=== PATIENT | female | born 1965 | race Hispanic/Latino ===

== ENCOUNTER 2019-09-17 08:19 | Observation (INO) | payer BC, OTHER ==
[2019-09-15 16:42] VITALS: BP 135/75
[2019-09-15 16:48] LABS: BASOPHILS % (AUTO) 0.7 % (0.0-5.0); HEMATOCRIT 40.7 % (36-48); LYMPHOCYTES % (AUTO) 44.2 % (21.0-51.0); MEAN CORPUSCULAR HEMOGLOBIN 26.4 pg (27.0-33.0); MEAN CORPUSCULAR HGB CONC 31.7 g/dL (32.0-36.0); MEAN CORPUSCULAR VOLUME 83.4 fL (79-99); MONOCYTES % (AUTO) 4.8 % (3.0-13.0); NEUTROPHILS % (AUTO) 47.9 % (40.0-77.0); PLATELET COUNT (AUTO) 388 K/uL (130-400); RED BLOOD CELL COUNT(AUTO) 4.88 MIL/uL (4.00-5.50); RED CELL DISTRIBUTION WIDTH 13.4 % (11.0-15.5); WHITE BLOOD COUNT (AUTO) 8.1 K/uL (4.8-10.8)
[2019-09-15 16:54] LABS: CREATININE 0.7 mg/dL (0.5-1.5); POTASSIUM 3.8 mmol/L (3.5-5.1)
[2019-09-15 16:58] LABS: INR 1.06 (0.85-1.15); PARTIAL THROMBOPLASTIN TIME 28.2 SEC (26.3-35.5); PROTHROMBIN TIME 11.1 SEC (9.6-11.6)
--- NOTE | 2019-09-15 17:03 | NUR ---
PER [place]ST[place] FOR DR GOINS NO NEED TO HOLD JANUMET FOR ABLATION
--- NOTE | 2019-09-15 18:16 | NUR ---
REPORT GIVEN FROM [facility], STATES PT HCG SERUM IS POSSIBLE POSITIVE SHOWS LIGHT POSITIVE, STATES SHE WILL RECHECK SERUM QUANTITATE. NOTIFIED ISAIAS Silva PEDIATRIC HOSPITALIST, WILL RECHECK IN AM 09-16-2019 AND INFORM PT/ DR. GOINS IF LAB IS POSITIVE.
[~2019-09-17] VITALS: Ht 156.2 cm; Wt 64.9 kg
[2019-09-17] VITALS (10 sets, daily range): BP systolic 100–134; BP diastolic 64–81
[~2019-09-17 08:19] MED LIST: CETI10TA57 PO; GLYB5TAB8 PO; SITA1TAB6 PO; VERA120T13 PO
--- NOTE | 2019-09-17 09:30 | NUR ---
PRECAUTIONS RT ARM PRECAUTIONS Addendum: 09/17/19 at 0950 by JOSE CRUZ KNIGHT RN RN Amended: Links added.
--- NOTE | 2019-09-17 09:30 | NUR ---
PRE OP PT ARRIVED FOR SVT ABLATION IN NO DISTRESS. PT IN BED, CALL LIGHT WITH IN REACH, BED IN LOWEST POSITION, AND PT INSTRUCTED TO CALL FOR ASSISTANCE. PT VOICED UNDERSTANDING
[2019-09-17] MEDS ORDERED: SODIUM CHLORIDE 0.9% 1000ML 1,000 ML IV ONE (09:43)
[2019-09-17] MEDS ORDERED: ISOPROTERENOL HCL 0.2 MG/ML AMP/VIAL/BAG ONE (16:01)
[2019-09-17] MEDS ORDERED: MIDAZOLAM HCL 1 MG/ML 2ML VIAL ONE ×3 (16:02→17:49)
[2019-09-17] MEDS ORDERED: HEPARIN SODIUM 1000UNIT/ML 10ML VIAL ONE (16:02)
[2019-09-17] MEDS ORDERED: MEPERIDINE-PF 25 MG/ML SYG ONE ×4 (16:03→17:49)
[2019-09-17] MEDS ORDERED: LIDOCAINE HCL 2% 20ML ONE (16:03)
--- NOTE | 2019-09-17 20:00 | NUR ---
DRESSINGS BILATERAL GROINS CLEAN, DRY, AND INTACT.SITES APPEAR SOFT TO PALPATION.
[2019-09-17] MEDS ORDERED: CETIRIZINE HCL 5 MG TABLET PO SCH (21:00)
[2019-09-17] MEDS ORDERED: GLUCAGON 1MG KIT 1 MG ML IM PRN (21:15)
[2019-09-17] MEDS ORDERED: DEXTROSE 50%-WATER 50 ML DISP.SYRIN IV PRN (21:15)
[2019-09-17] MEDS: GLYBURIDE 5 MG TABLET PO SCH (21:24)
--- NOTE | 2019-09-17 22:00 | NUR ---
0/4/0500-BILATERAL GROIN DRESSINGS CLEAN DRY AND INTACT. SITES APPEAR SOFT TO PALPATION.
[2019-09-18 03:50] VITALS: BP 101/66
[2019-09-18] MEDS: INSULIN HUMULIN R 100 UNIT/ML 3ML SQ SCH ×2 (05:35→12:23)
[2019-09-18] MEDS ORDERED: ONDANSETRON HCL 4 MG/2 ML VIAL IV PRN (07:00)
[2019-09-18] MEDS ORDERED: NITROGLYCERIN 0.4 MG SL TAB SL PRN (07:00)
[2019-09-18] MEDS ORDERED: ACETAMINOPHEN 325 MG TAB PO PRN (07:00)
[2019-09-18 07:19] LABS: BASOPHILS % (AUTO) 0.5 % (0.0-5.0); EOSINOPHILS % (AUTO) 0.9 % (0.0-8.0); HEMATOCRIT 39.5 % (36-48); LYMPHOCYTES % (AUTO) 39.1 % (21.0-51.0); MEAN CORPUSCULAR HEMOGLOBIN 26.5 pg (27.0-33.0); MEAN CORPUSCULAR HGB CONC 32.4 g/dL (32.0-36.0); MEAN CORPUSCULAR VOLUME 81.8 fL (79-99); MONOCYTES % (AUTO) 5.1 % (3.0-13.0); NEUTROPHILS % (AUTO) 54.2 % (40.0-77.0); PLATELET COUNT (AUTO) 352 K/uL (130-400); RED BLOOD CELL COUNT(AUTO) 4.83 MIL/uL (4.00-5.50); RED CELL DISTRIBUTION WIDTH 13.2 % (11.0-15.5); WHITE BLOOD COUNT (AUTO) 8.7 K/uL (4.8-10.8)
[2019-09-18] MEDS: ACETAMINOPHEN 325 MG TAB PO PRN ×2 (07:27→12:17)
[2019-09-18 07:35] LABS: ALBUMIN 3.5 g/dL (3.5-5.0); BILIRUBIN,TOTAL 0.4 mg/dL (0.2-1.0); CREATININE 0.5 mg/dL (0.5-1.5); POTASSIUM 3.5 mmol/L (3.5-5.1); TOTAL PROTEIN, SERUM 7.6 g/dL (6.0-8.3)
[2019-09-18 07:45] VITALS: BP 111/82
[2019-09-18] MEDS ORDERED: JANUMET 50/1000 PO SCH (09:00)
[2019-09-18] MEDS: GLYBURIDE 5 MG TABLET PO SCH (09:00)
[2019-09-18] MEDS ORDERED: FAMOTIDINE 20MG TAB 20 MG TAB PO SCH (09:00)
== END 2019-09-18 16:00 | disposition home or self-care (01) ==
LOC: DAH 08:19 → 2DH 08:20 → UNDOADMOB 18:36
PROVIDERS: ADMIT Internal Medicine; ATTEND Internal Medicine
DX: I47.1 Supraventricular tachycardia (principal); I11.0 Hypertensive heart disease with heart failure; I50.32 Chronic diastolic (congestive) heart failure; E78.5 Hyperlipidemia, unspecified; E78.00 Pure hypercholesterolemia, unspecified; Z90.49 Acquired absence of other specified parts of digestive tract; E11.9 Type 2 diabetes mellitus without complications; Z90.11 Acquired absence of right breast and nipple; Z85.3 Personal history of malignant neoplasm of breast
CPT/HCPCS: 36415 ×2; 80048; 80053; 82948 ×4; 83735; 84703; 85025 ×2; 85610; 85730; 93005; 93613; 93621; 93623; 93653; 96372; A4215; A4216; A4221; A4222; A4223 ×3; A4606; A4649 ×2; A4663; C1730 ×4; C1732; C1894 ×5; G0378 ×17; J1644; J1815; J2175 ×3; J2250 ×2; J3490 ×2; J7030; 99156; 99157

== ENCOUNTER 2021-10-12 06:44 | Observation (INO) | payer OTHER ==
[2021-10-11 10:57] LABS: BASOPHILS % (AUTO) 0.6 % (0.0-5.0); EOSINOPHILS % (AUTO) 2.6 % (0.0-8.0); LYMPHOCYTES % (AUTO) 41.5 % (21.0-51.0); MEAN CORPUSCULAR HEMOGLOBIN 28.2 pg (27.0-33.0); MEAN CORPUSCULAR HGB CONC 32.5 g/dL (32.0-36.0); MEAN CORPUSCULAR VOLUME 86.8 fL (79-99); MONOCYTES % (AUTO) 4.9 % (3.0-13.0); NEUTROPHILS % (AUTO) 50.3 % (40.0-77.0); PLATELET COUNT (AUTO) 315 K/uL (130-400); RED BLOOD CELL COUNT(AUTO) 5.07 MIL/uL (4.00-5.50); RED CELL DISTRIBUTION WIDTH 12.2 % (11.0-15.5); WHITE BLOOD COUNT (AUTO) 8.4 K/uL (4.8-10.8)
[2021-10-11 11:07] LABS: CREATININE 0.6 mg/dL (0.5-1.5); POTASSIUM 4.1 mmol/L (3.5-5.1)
[2021-10-11 12:00] LABS: INR 1.1 (0.85-1.15); PROTHROMBIN TIME 11.9 SEC (9.6-11.6)
[2021-10-11 12:02] LABS: PARTIAL THROMBOPLASTIN TIME 29.6 SEC (26.3-35.5)
[2021-10-11 12:33] VITALS: BP 118/71
[2021-10-12] VITALS (11 sets, daily range): BP systolic 99–115; BP diastolic 62–72
[~2021-10-12] VITALS: Ht 157.5 cm; Wt 63.8 kg
[~2021-10-12 06:44] MED LIST changes: -CETI10TA57 PO; +GLIP10TA9 PO; -GLYB5TAB8 PO; +LOSA25TA41 PO; +ROSU20TA31 PO; +SAXA1TBM2 PO; -SITA1TAB6 PO; -VERA120T13 PO
[2021-10-12] MEDS ORDERED: 0.9%NACL 1000ML 1,000 ML IV SCH (08:00)
[2021-10-12] MEDS ORDERED: METFORMIN HCL 500 MG TABLET PO SCH (08:30)
[2021-10-12] MEDS ORDERED: GLIPIZIDE 5 MG TABLET PO SCH (08:30)
[2021-10-12] MEDS ORDERED: LINAGLIPTIN 5 MG TABLET PO SCH (08:30)
[2021-10-12] MEDS ORDERED: MEPERIDINE-PF 25 MG/ML SYG ONE ×3 (09:23→10:39)
[2021-10-12] MEDS ORDERED: LIDOCAINE HCL 1% 20 ML VIAL ONE (09:23)
[2021-10-12] MEDS ORDERED: MIDAZOLAM HCL 1 MG/ML 2ML VIAL ONE ×4 (09:23→12:57)
[2021-10-12] MEDS ORDERED: HEPARIN 1,000 UNIT VIAL ONE (09:31)
[2021-10-12] MEDS ORDERED: LIDOCAINE HCL 400MG/20ML VIAL ONE (09:33)
[2021-10-12] MEDS ORDERED: ISOPROTERENOL HCL 0.2 MG/ML AMP/VIAL/BAG ONE (09:58)
[2021-10-12] MEDS ORDERED: MEPERIDINE-PF 50 MG/ML SYG ONE ×2 (11:15→12:58)
[2021-10-12] MEDS ORDERED: METOPROLOL TARTRATE 1 MG/ML 5ML VIAL IV ONE (12:46)
[2021-10-12] MEDS ORDERED: IVAB5TAB PO (14:45)
[2021-10-12] MEDS ORDERED: ATORVASTATIN 40 MG TABLET PO SCH (21:00)
[2021-10-12] MEDS: KOMBIGLYZE PO SCH (21:00)
[2021-10-13 03:46] VITALS: BP 117/69
[2021-10-13] MEDS ORDERED: GLIPIZIDE 5 MG TABLET PO SCH (08:00)
[2021-10-13 08:25] VITALS: BP 122/73
[2021-10-13] MEDS ORDERED: LOSARTAN 25 MG TABLET PO SCH (09:00)
[2021-10-13] MEDS: KOMBIGLYZE PO SCH (09:51)
[2021-10-13 12:10] VITALS: BP 121/70
== END 2021-10-13 13:10 | disposition home or self-care (01) ==
LOC: DAH 06:44 → 2AH 06:45
PROVIDERS: ADMIT Internal Medicine Cardiovascular Disease; ATTEND Internal Medicine Cardiovascular Disease
DX: I47.1 Supraventricular tachycardia (principal); Z79.899 Other long term (current) drug therapy; Z98.890 Other specified postprocedural states
CPT/HCPCS: 36415; 80048; 82948 ×4; 84703; 85025; 85610; 85730; 93005; 93613; 93620; 93621; 93623; A4215; A4216; A4221; A4222; A4223 ×3; A4606; A4649 ×2; A4663; C1730 ×4; C1731; C1732; C1894 ×5; G0378 ×18; J1644 ×4; J2175 ×5; J2250 ×4; J3490 ×3; J7030; 99156; 99157